=== PATIENT | male | born 1960 | race Two or more races ===

== ENCOUNTER 2018-02-07 11:16 | Emergency (ER) | payer OTHER ==
[~2018-02-07] VITALS: Ht 160 cm; Wt 79.9 kg
[2018-02-07 11:17] VITALS: BP 145/92
[2018-02-07] MEDS ORDERED: DIPH,PERTUSS(ACELL),TET VAC/PF 0.5 ML IM-VACC ONE ×2 (12:22→12:30)
[2018-02-07] MEDS ORDERED: LIDOCAINE-MPF 2% ,5ML ONE (12:22)
[2018-02-07] MEDS ORDERED: LIDOCAINE-MPF 1%, 5ML INFIL ONE (12:30)
[2018-02-07] MEDS ORDERED: BACITRACIN ZINC OINT 500U/GM, 0.9 GM ONE ×2 (12:55)
== END 2018-02-07 13:22 | disposition home or self-care (01) ==
LOC: ED 12:00
DX: S62.664B Nondisplaced fracture of distal phalanx of right ring finger, initial encounter for open fracture (principal); X58.XXXA Exposure to other specified factors, initial encounter; Y93.89 Activity, other specified; Y99.8 Other external cause status; Y92.69 Other specified industrial and construction area as the place of occurrence of the external cause
CPT/HCPCS: 12042; 90471; 90715; 99285